=== PATIENT | female | born 1990 | race Caucasian/White ===

== ENCOUNTER 2017-11-23 16:28 | Emergency (ER) | payer OTHER ==
[~2017-11-23] VITALS: Ht 172.7 cm; Wt 59.0 kg
[~2017-11-23 16:28] MED LIST: HYDROCODONE-AP1 EAC6 PO; IBUPROFEN 600600 M1 PO; XANAX1 MG PO
[2017-11-23 16:34] VITALS: BP 146/86
[2017-11-23] MEDS ORDERED: TRAZODONE HCL100 MG PO (16:40)
== END 2017-11-23 16:50 ==
LOC: M.ERS 16:28
DX: F41.9 Anxiety disorder, unspecified (principal); F17.210 Nicotine dependence, cigarettes, uncomplicated; Z88.0 Allergy status to penicillin

== ENCOUNTER 2018-06-11 01:10 | Emergency (ER) | payer OTHER, MEDICAID ==
[~2018-06-11] VITALS: Ht 172.7 cm; Wt 61.2 kg
[~2018-06-11 01:10] MED LIST changes: +TRAZODONE HCL100 MG PO
[2018-06-11 02:41] VITALS: BP 111/63
== END 2018-06-11 02:31 | disposition short-term general hospital (02) ==
LOC: M.ERS 01:10
DX: O26.892 Other specified pregnancy related conditions, second trimester (principal); R10.30 Lower abdominal pain, unspecified; Z88.0 Allergy status to penicillin; O99.332 Smoking (tobacco) complicating pregnancy, second trimester; Z3A.26 26 weeks gestation of pregnancy